=== PATIENT | female | born 1965 | race Caucasian/White ===

== ENCOUNTER 2020-06-22 17:42 | Emergency (ER) | payer OTHER ==
[~2020-06-22] VITALS: Ht 167.6 cm; Wt 74.2 kg
--- NOTE | 2020-06-22 18:08 | NUR ---
PATIENT WALKED BACK FROM TRIAGE WITH CHIEF C/O SOB. PATIENT STATES SHE HAS COPD, NO HOME O2. NORMALLY PATIENT STATES SHE USES HER RESCUE INHALER EVERY 2-3 DAYS, BUT RECENTLY HAS HAD TO USE IT MORE OFTEN AND HER BREATHING TREATMENTS. PATIENT HAS NOT FELT ANY RELIEF THE LAST 3 DAYS. PATIENT DENIES N/V/D, DENIES FEVER. PATIENT IS 93% ON RA, NADN, CALL LIGHT WITHIN REACH.
[2020-06-22] MEDS ORDERED: ALBUTEROL/IPRATROPIUM 2.5MG/0.5MG, 3 ML NPPB ONE (18:30)
[2020-06-22] MEDS ORDERED: ALBUTEROL/IPRATROPIUM 2.5MG/0.5MG, 3 ML ONE (18:35)
[2020-06-22] MEDS ORDERED: methylPREDNISolone SOD SUCC 125 MG/2 ML ONE (18:43)
[2020-06-22] MEDS ORDERED: MAGNESIUM SULFATE PMX 2GM/50ML 0 ML ONE (18:43)
[2020-06-22] MEDS ORDERED: MAGNESIUM SULFATE PMX 4GM/100M 100 ML IVPB ONE (19:00)
[2020-06-22] MEDS ORDERED: methylPREDNISolone SOD SUCC 125 MG/2 ML IV ONE (19:00)
[2020-06-22] MEDS ORDERED: MAGNESIUM SULFATE PMX 4GM/100M 100 ML ONE (19:02)
--- NOTE | 2020-06-22 19:08 | NUR ---
PATIENT FINISHED BREATHING TREATMENT, TOLERATED WELL. MEDICATED PER eMAR, VSS, CALL LIGHT WITHIN REACH, NO FURTHER NEEDS AT THIS TIME.
[2020-06-22 19:45] VITALS: BP 117/59
== END 2020-06-22 20:26 | disposition home or self-care (01) ==
LOC: ED 19:09
DX: J44.1 Chronic obstructive pulmonary disease with (acute) exacerbation (principal); R06.02 Shortness of breath; R05 Cough; F17.210 Nicotine dependence, cigarettes, uncomplicated
CPT/HCPCS: 71045; 93005; 94640; 96365; 96375; 99284; 99406; J2930; J3475